=== PATIENT | male | born 1970 | race Caucasian/White ===

== ENCOUNTER → 2016-06-29 | Outpatient (CLI) | payer BC ==
[~2016-06-29] MED LIST: LISI-725 PO; SIMV20TA2 PO
[2016-06-29 12:13] LABS: BASO % 0.6 %; BASO ABS # 0.04 K/uL (0-0.2); COMPLETE YES; HEMATOCRIT 45.5 % (42-52); IG% 0.7 %; LYMPH % 34.3 %; LYMPH ABS # 2.44 K/uL (1.2-3.4); MEAN CORPUSCULAR HEMOGLOBIN 29.7 pg (25-34); MEAN CORPUSCULAR HGB CONC 34.9 g/dl (32-36); MEAN PLATELET VOLUME 9.8 fL (7.4-10.4); MONO % 12.1 %; NEUT % 50.3 %; PLATELET COUNT 278 K/uL (130-400); RED BLOOD COUNT 5.35 M/uL (4.7-6.1); WHITE BLOOD COUNT 7.11 K/uL (4.8-10.8)
[2016-06-29 12:41] LABS: ALT/SGPT 85 U/L (12-78); AST/SGOT 36 U/L (15-37); BLOOD UREA NITROGEN 15 mg/dl (7-18); BUN/CREATININE RATIO 14.9 (10-20); CALCIUM 8.8 mg/dl (8.5-10.1); CARBON DIOXIDE 27 mmol/L (21-32); CHLORIDE 107 mmol/L (98-107); GLUCOSE 107 mg/dl (70-99); POTASSIUM 4.2 mmol/L (3.5-5.1); SODIUM 140 mmol/L (136-145)
[2016-06-29 12:44] LABS: ALKALINE PHOSPHATASE 88 U/L (45-117); CHOLESTEROL 205 mg/dl (0-200); CHOLESTEROL/HDL RATIO 6.4; HDL CHOLESTEROL 32 mg/dl; TRIGLYCERIDES 434 mg/dl (0-150)
== END | disposition home or self-care (01) ==
LOC: C.LABPVFM 07:31
PROVIDERS: ATTEND Family Medicine
DX: E78.5 Hyperlipidemia, unspecified (principal)

== ENCOUNTER → 2017-08-11 | Day surgery (SDC) | payer OTHER ==
[2017-07-26 15:34] VITALS: Ht 180.3 cm; Wt 93.2 kg
--- NOTE | 2017-08-10 12:23 | History and Physical: Surg Cnt ---
History & Physical Date August 10, 2017. Chief Complaint tonsil stones History of Present Illness The patient is a 47 year old male with complaints of chronic tonsillitis, tonsil stones Past Medical/Surgical History Medical Problems: (1) Kidney stones Surgical Problems: (1) H/O cystoscopy (2) H/O lithotripsy Additional History Hepatic Disease: No Endocrine Disorder: No Kidney Disease: Yes Hypertension: No Heart Disease: No Bleeding Tendencies: No Infectious Diseases: No Allergies Coded Allergies: Penicillins (Verified Allergy, Unknown, as child, 07/26/17) Home Medications Scheduled Aspirin (Aspirin Ec), 81 MG PO QPM Lisinopril (Zestril), 20 MG PO QPM Omeprazole (Omeprazole Dr), 20 MG PO QPM Simvastatin (Zocor), 40 MG PO QPM Physical Examination Skin: warm/dry, no rash Eyes: normal inspection, EOMI, sclerae normal ENT: normal ENT inspection, pharynx normal Head: normocephalic, atraumatic Neck: supple, no adenopathy, trachea midline Respiratory/Chest: lungs clear, normal breath sounds, no respiratory distress Cardiovascular: regular rate, rhythm, no edema, no murmur Abdomen / GI: normal bowel sounds, non tender Back: normal inspection Extremities: normal inspection, normal range of motion Neurologic/Psych: no motor/sensory deficits, alert, normal reflexes, oriented x 3 Diagnosis chronic tonsillitis Plan of Treatment adenotonsillectomy
[~2017-08-11] VITALS: Ht 180.3 cm; Wt 93.2 kg
[~2017-08-11] MED LIST changes: +ACETAMINOPHEN/HYDROCODONE ELIX 15 ML/CUP UDP PO PRN; +ASPI81TA28 PO; +ATROPINE SULFATE 0.1 MG/ML 5ML SYR IV PRN; +BUPIVACAINE 0.5 % 5 MG/1 ML MPF 30ML VIAL ONE; +DEXAMETHASONE SOD INJ 4 MG/ML VIAL ONE; +EpHEDrine SULFATE INJ 50 MG/ML AMP IV PRN; +EpINEphrine INJ 1MG/ML AMP 1 MG/ML AMP ONE; +FENTANYL CITRATE INJ 50 MCG/1 ML 2 ML VIAL IV PRN; +FENTANYL CITRATE INJ 50 MCG/1 ML 2 ML VIAL ONE; +FLUMAZENIL 0.1 MG/1 ML 10 ML VIAL IV PRN; +GLYCOPYRROLATE INJ 0.2 MG/ML VIAL ONE; +HYDR1SOL10 PO; +LABETALOL HCL IV 5 MG/ML 20ML IV PRN; +LACTATED RINGER'S 1000ML 1,000 ML IV SCH; +LIDOCAINE HCL 2% 2 ML VIAL (20MG/ML) ONE; +MIDAZOLAM HCL 1 MG/ML 2ML VIAL ONE; +NALOXONE HCL 0.4 MG/1 ML VIAL/CARP IV PRN; +NEOSTIGMINE METHYLSULFATE 5 MG/5 ML SYR ONE; +OMEP-331 PO; +ONDANSETRON INJ 2 MG/ML 2 ML VIAL IV PRN; +ONDANSETRON INJ 2 MG/ML 2 ML VIAL ONE; +PROMETHAZINE HCL INJ 12.5 MG in SODIUM CHLORIDE 0.9% 50ML 50 ML IV PRN; +PROPOFOL IV EMULSION 10 MG/ML 20 ML VIAL ONE; +ROCURONIUM BROMIDE 10 MG/ML 5 ML VIAL ONE; -SIMV20TA2 PO; +SIMV40TA4 PO; +SODIUM CHLORIDE 0.9% 1000ML 1,000 ML IV SCH
--- NOTE | 2017-08-11 09:20 | History & Physical Bridge Note ---
H&P Re-Evaluation Bridge Note: I have examined the patient, reviewed the History & Physical and in the interval since the performance of the History & Physical I have noted the following changes of clinical significance: No changes noted
--- NOTE | 2017-08-11 09:22 | Discharge Instructions-SurgCtr ---
Discharge Instructions Date of Service August 11, 2017. Visit Reason for Visit: Chronic Tonsillitis Discharge Discharge Diagnosis / Problem: same Discharge Goals Goal(s): Improve disease control Medications Stopped Medications Name(s): ASA. LAST DOSE TUESDAY Activity Recommendations Activity Limitations: per Instructions/Follow-up section Anesthesia . Post Anesthesia Instructions: If you have had General Anesthesia or IV Sedation: * Do not drive today. * Resume driving when surgeon permits. * Do not make important decisions or sign legal documents today. * Call surgeon for: 1. Temperature elevations greater than 101 degrees F. 2. Uncontrollable pain. 3. Excessive bleeding. 4. Persistent nausea and vomiting. 5. Medication intolerance (nausea, vomiting or rash). * For nausea and vomiting use only clear liquids such as: tea, soda, bouillon until nausea subsides, then gradually increase diet as tolerated. * If you have any concerns or questions, call your surgeon's office. If physician is unavailable and it is an emergency, call 911 or go to the nearest emergency room. . Instructions / Follow-Up Instructions / Follow-Up ACTIVITY RECOMMENDATIONS: * During the first few days, activities should be limited. * Stay indoors for several days. * After 48 hours, activity can gradually be increased to normal activity. RETURN TO SCHOOL/WORK: * Return to school or work in one week. * No physical education for two weeks. OVER THE COUNTER MEDICATIONS: * You may use Tylenol * Avoid aspirin or aspirin containing products, e.g. as they may increase bleeding. SPECIAL CARE INSTRUCTIONS: * Avoid coughing or clearing the throat. * Do not use a straw. * A sore throat is expected frequently accompanied by pain radiating to the ears. This is normal. * Expect bad breath until "scabs" are healed. * Notify the doctor if bleeding occurs, vomiting, temperature greater than 101 degrees Fahrenheit. Call or cell phone: . * If bleeding occurs, it is usually in the first 24 hours or after the 5th day. If unable to reach the doctor, go to the nearest Emergency Department. Special Diet: * Fluids are very important and should be encouraged to maintain adequate hydration. * To maintain nutrition, eat soft foods and after 48 hours the consistency of foods can be increased. Examples are jello, soup, pasta, ice cream and mashed foods. FOLLOW UP VISIT: Follow-up visit with Dr. Ferraro in 2 weeks. Please call to schedule if not already scheduled. Diet Recommendations Home Diet: special diet Diet Texture: Mechanical Soft (ground) Pending Studies Studies pending at discharge: no Medical Emergencies . Who to Call and When: Medical Emergencies: If at any time you feel your situation is an emergency, please call 911 immediately. . Non-Emergent Contact Non-Emergency issues call your: Primary Care Provider . . "Provider Documentation" section prepared by Kaylin Ferraro. . [place] Drug Monitoring Program Search Results: no issues identified
--- NOTE | 2017-08-11 10:55 | OPERATIVE REPORT ---
DATE OF OPERATION: 08/11/2017 PREOPERATIVE DIAGNOSIS: Chronic tonsillitis, adenoid hypertrophy. POSTOPERATIVE DIAGNOSIS: Chronic tonsillitis, adenoid hypertrophy. PROCEDURE: Adenotonsillectomy. SURGEON: Kaylin Ferraro MD ANESTHESIA: General endotracheal. COMPLICATIONS: None. BLOOD LOSS: 5 mL. HISTORY OF PRESENT ILLNESS: A 47-year-old gentleman with significant history of recurrent chronic tonsillitis with tonsil stones. OPERATION AND FINDINGS: DESCRIPTION OF PROCEDURE: The patient was brought to the operating room and placed in supine position. General endotracheal anesthesia was induced, draped in the usual manner. Mouth gag was placed. Peritonsillar area was injected with .5% Sensorcaine, 1:200:000 strength Epinephrine. Soft palate retracted using a red Durbin catheter. Tonsillectomy performed using the coblation device coblating out the tonsil from anterior to the posterior pillar and from the superior pole to the inferior pole. Both tonsils were removed in a similar manner. Hemostasis was controlled with the coblation device. Adenoidectomy was performed using the coblation technique and hemostasis controlled using the coblation technique. The patient tolerated the procedure well and was taken to the recovery room in satisfactory condition. At this point, were removed in the coblation technique. The patient tolerated the procedure for condition. I attest to the content of the Intraoperative Record and any orders documented therein. Any exception s are noted below.
[2017-08-11 11:11] VITALS: TEMP 36.9
[2017-08-11 11:33] VITALS: BP 119/80; PULSE 78; O2SAT 94
--- NOTE | 2017-08-11 11:37 | Anesthesia Progress Nt - [facility] ---
Anesthesia Post Op Note Date & Time August 11, 2017 at 11:37 Vital Signs Pain Intensity: 6 Vital Signs Past 12 Hours Date Time Temp Pulse Resp B/P (MAP) Pulse Ox O2 Delivery O2 Flow Rate FiO2 08/11/17 11:33 78 14 119/80 (93) 94 Room Air 08/11/17 11:11 36.9 88 16 123/77 (92) 94 Room Air 08/11/17 11:06 36.7 75 16 129/83 95 Room Air 08/11/17 11:01 125/81 08/11/17 10:58 85 24 08/11/17 10:58 88 24 95 08/11/17 10:56 128/76 08/11/17 10:53 92 27 08/11/17 10:53 93 27 96 08/11/17 10:51 117/94 08/11/17 10:48 87 23 08/11/17 10:48 91 23 98 08/11/17 10:46 126/76 08/11/17 10:43 79 22 98 08/11/17 10:43 78 22 08/11/17 10:41 124/79 08/11/17 10:38 79 18 08/11/17 10:38 79 18 98 08/11/17 10:36 127/74 08/11/17 10:33 80 19 08/11/17 10:33 80 19 98 08/11/17 10:32 87 22 08/11/17 10:32 88 22 97 08/11/17 10:31 116/76 08/11/17 10:28 130/79 08/11/17 10:27 36.4 89 16 130/79 96 Humidified Oxygen 8 Mask 08/11/17 08:09 36.5 75 16 145/95 (112) 97 Room Air Notes Mental Status: alert / awake / arousable, participated in evaluation Pt Amnestic to Procedure: Yes Nausea / Vomiting: adequately controlled Pain: adequately controlled Airway Patency, RR, SpO2: stable & adequate BP & HR: stable & adequate Hydration State: stable & adequate Anesthetic Complications: no major complications apparent
== END | disposition home or self-care (01) ==
LOC: X.SURG 07:43
PROVIDERS: ATTEND Otolaryngology
DX: J35.01 Chronic tonsillitis (principal); J35.3 Hypertrophy of tonsils with hypertrophy of adenoids; I10 Essential (primary) hypertension; E78.5 Hyperlipidemia, unspecified; K21.9 Gastro-esophageal reflux disease without esophagitis; Z79.899 Other long term (current) drug therapy; Z79.82 Long term (current) use of aspirin; Z80.0 Family history of malignant neoplasm of digestive organs